=== PATIENT | female | born 2000 | race Caucasian/White ===

== ENCOUNTER 2018-01-05 19:18 | Emergency (ER) | payer OTHER ==
[2018-01-05 19:44] LABS: BASOPHIL (%) 0.3 % (0-1); EOSINOPHIL (%) 1.4 % (0-5); EOSINOPHIL COUNT 0.1 K/uL (0-0.3); HEMATOCRIT 38.3 % (36.0-46.0); HEMOGLOBIN 13.1 G/DL (11.9-15.5); IMMATURE GRANULOCYTE (%) 0.8 % (0.0-0.7); LYMPHOCYTE (%) 19.4 % (15-42); LYMPHOCYTE COUNT 1.9 K/uL (1.0-2.8); MCH 28.9 PG (29.0-34.0); MCHC 34.2 G/DL (30.0-36.0); MCV 84.4 FL (83-99); MONOCYTE (%) 6.6 % (3-12); MONOCYTE COUNT 0.6 K/uL (0-0.8); NEUTROPHIL (%) 71.5 % (45-76); NEUTROPHIL COUNT 6.9 K/uL (1.8-6.4); PLATELET COUNT 318 K/uL (156-360); RBC DIS.WIDTH-CV 11.8 % (11.8-14.6); RBC DIS.WIDTH-SD 35.7 % (39-53); RED BLOOD COUNT 4.54 M/uL (3.80-5.20); WHITE BLOOD COUNT 9.7 K/uL (4.1-10.2)
[2018-01-05 20:01] LABS: AMYLASE 33 IU/L (1-118); CHLORIDE 105 mEq/L (99-109); SODIUM 141 mEq/L (136-147)
[2018-01-05 20:03] LABS: GLUCOSE 88 mg/dL (70-99)
[2018-01-05 20:06] LABS: SERUM ETHYL ALCOHOL < 10 mg/dL
[2018-01-05 20:07] LABS: CREATININE 0.7 mg/dL (0.6-1.3); UREA NITROGEN (BUN) 7 mg/dL (9-23)
[2018-01-05 20:10] LABS: LIPASE 52 U/L (1.0-51.0)
[2018-01-05 20:13] LABS: GFR ESTIMATE (CALCULATED) > 59 mL/min/
[2018-01-05 20:16] LABS: QUANTITATIVE HCG < 4.0 MIU/ML
== END 2018-01-05 23:06 | disposition short-term general hospital (02) ==
LOC: TRA 19:18
PROVIDERS: Emergency Medicine
DX: S06.0X0A Concussion without loss of consciousness, initial encounter (principal); S36.039A Unspecified laceration of spleen, initial encounter; J93.9 Pneumothorax, unspecified; S22.32XA Fracture of one rib, left side, initial encounter for closed fracture; S83.91XA Sprain of unspecified site of right knee, initial encounter; V49.9XXA Car occupant (driver) (passenger) injured in unspecified traffic accident, initial encounter; Y92.410 Unspecified street and highway as the place of occurrence of the external cause; Z88.0 Allergy status to penicillin
CPT/HCPCS: 70450; 71260; 72125; 72129; 72132; 73552; 73560; 74177; 80048; 81003; 82150; 83690; 84702; 85025; 86850; 86900; 86901; 93005; 99281; 99285; G0480; J3010